=== PATIENT | male | born 1965 | race Caucasian/White ===

== ENCOUNTER 2021-12-16 14:40 | Day surgery (SDC) | payer OTHER, SELFPAY ==
[2021-12-12 10:37] LABS: BASOPHILS # (AUTO) 0.1 K/uL (0.0-0.2); BASOPHILS % (AUTO) 2.2 % (0.0-2.0); EOSINOPHILS # (AUTO) 0.3 K/uL (0.0-0.4); EOSINOPHILS % (AUTO) 4.9 % (0.0-4.0); HEMATOCRIT 46.4 % (36-54); HEMOGLOBIN 15.6 g/dL (14.0-18.0); LYMPHOCYTES % (AUTO) 32.5 % (20.5-51.5); MEAN CORPUSCULAR HEMOGLOBIN 31 pg (27-31); MEAN CORPUSCULAR HGB CONC 34 % (32-36); MEAN CORPUSCULAR VOLUME 92 fL (79.0-98.0); MONOCYTES # (AUTO) 0.6 K/uL (0.0-1.0); MONOCYTES % (AUTO) 9.4 % (1.7-9.3); NEUTROPHILS # (AUTO) 3.1 K/uL (1.8-7.7); PLATELET COUNT (AUTO) 165 K/uL (130-430); RED BLOOD CELL COUNT(AUTO) 5.04 MIL/uL (4.2-6.2); RED CELL DISTRIBUTION WIDTH 13.2 % (9.0-15.0); WHITE BLOOD COUNT (AUTO) 6.1 K/uL (4.8-10.8)
[2021-12-12 10:55] LABS: INR 0.9 (0.80-1.20)
[2021-12-12 11:00] LABS: BILIRUBIN,URINE NEGATIVE (NEGATIVE); BLOOD, URINE NEGATIVE (NEGATIVE); CLARITY/URINE CLEAR (CLEAR); COLOR,URINE YELLOW (YELLOW); GLUCOSE,URINE NEGATIVE (NEGATIVE); KETONES,URINE NEGATIVE (NEGATIVE); LEUKOCYTE ESTERASE ,URINE NEGATIVE (NEGATIVE); NITRITE, URINE NEGATIVE (NEGATIVE); PROTEIN URINE NEGATIVE (NEGATIVE); UROBILINOGEN,URINE 0.2 (0.2-1.0)
[2021-12-12 11:18] LABS: CALCIUM 9.3 mg/dL (8.4-11.0); CREATININE 1.03 mg/dL (0.55-1.30); POTASSIUM 5.1 mmol/L (3.5-5.1)
[~2021-12-16] VITALS: Ht 185.4 cm; Wt 97.5 kg
[~2021-12-16 14:40] MED LIST: BUPIVACAINE /PF 0.5% 30 ML VIAL INJ ONE; KETOROLAC TROMETHAMINE 30 MG VIAL IVP ONE; KETOROLAC TROMETHAMINE 30 MG VIAL IVP PRN; KETOROLAC TROMETHAMINE 30 MG VIAL ONE; LR 1,000 ML IV.SOLN IV ONE; METOCLOPRAMIDE HCL 10 MG/2 ML VIAL IVP PRN; MIDAZOLAM HCL 5 MG/5 ML VIAL IVP ONE; NS IRRIG SOLN 1000 ML IR ONE; ONDANSETRON HCL 4 MG/2 ML VIAL IVP ONE; PROPOFOL 200MG/ 20ML VIAL (DIPRIVAN) IV ONE; SEVOFLURANE 15 MIN GAS INH ONE; WATER FOR IRRIGATION,STERILE 1,000 ML IRRIG.SOLN IR ONE; fentaNYL CITRATE 250 MCG/5 ML AMP IV ONE
[2021-12-16] MEDS ORDERED: HYDROmorphone 1 MG/ML INJ. CARTRIDGE ONE (14:55)
[2021-12-16] MEDS: HYDROmorphone 1 MG/ML INJ. CARTRIDGE IVP PRN ×2 (14:58→16:07)
[2021-12-16 16:15] VITALS: BP_SYST 135
[2021-12-16 16:35] VITALS: BP_SYST 135
[2021-12-16] MEDS ORDERED: HYDROcodone/ACETAMIN 5-325 MG TAB (NORCO/ VICODIN) PO PRN ×2 (17:30)
[2021-12-16] MEDS ORDERED: ACETAMINOPHEN 325 MG TABLET PO PRN ×2 (17:30→17:45)
[2021-12-16] MEDS ORDERED: ONDANSETRON 4 MG ODT TAB PO PRN (17:30)
[2021-12-16] MEDS: HYDROmorphone 2 MG/ML VIAL IVP PRN (18:42)
[2021-12-16 20:00] VITALS: BP_SYST 133
[2021-12-17] VITALS: BP_SYST 132
[2021-12-17] MEDS: DOCUSATE SODIUM 100 MG CAPSULE PO SCH ×3 (00:34→21:00)
[2021-12-17] MEDS: CEFAZOLIN 1 GM IVPB PREMIX 50 ML IV SCH ×2 (00:35→05:30)
[2021-12-17] MEDS: HYDROmorphone 2 MG/ML VIAL IVP PRN ×5 (00:37→20:57)
[2021-12-17 09:00] VITALS: BP_SYST 139
[2021-12-17] MEDS: ENOXAPARIN SODIUM 40 MG/0.4 ML SYRINGE SUBCUT SCH (09:51)
[2021-12-17 12:00] VITALS: BP_SYST 149
[2021-12-17 17:31] VITALS: BP_SYST 136
[2021-12-17 23:30] VITALS: BP_SYST 127
[2021-12-18] MEDS: HYDROmorphone 2 MG/ML VIAL IVP PRN ×7 (01:26→20:43)
[2021-12-18 05:36] VITALS: BP_SYST 119
[2021-12-18 08:00] VITALS: BP_SYST 124
[2021-12-18] MEDS: DOCUSATE SODIUM 100 MG CAPSULE PO SCH ×2 (09:55→23:18)
[2021-12-18 12:00] VITALS: BP_SYST 126
[2021-12-18] MEDS: ENOXAPARIN SODIUM 40 MG/0.4 ML SYRINGE SUBCUT SCH (12:15)
[2021-12-18 14:30] VITALS: BP_SYST 137
[2021-12-18 17:40] VITALS: BP_SYST 17
[2021-12-19] MEDS: HYDROmorphone 2 MG/ML VIAL IVP PRN ×5 (03:20→19:39)
[2021-12-19 08:00] VITALS: BP_SYST 147
[2021-12-19] MEDS: ENOXAPARIN SODIUM 40 MG/0.4 ML SYRINGE SUBCUT SCH (09:33)
[2021-12-19 12:00] VITALS: BP_SYST 136
[2021-12-19] MEDS: DOCUSATE SODIUM 100 MG CAPSULE PO SCH ×2 (12:31→21:14)
[2021-12-19] MEDS ORDERED: OXYCODONE/ACETAMINOPHEN 5-325 TABLET PO PRN (14:15)
[2021-12-19] MEDS ORDERED: MAGNESIUM CITRATE 300 ML ORAL SOLUTION ONE (14:48)
[2021-12-19 18:34] VITALS: BP_SYST 134
== END 2021-12-19 21:43 | disposition home or self-care (01) ==
LOC: SDS 14:40 → SMU 14:43 → SDS 12-19 21:43
PROVIDERS: ATTEND Orthopaedic Surgery
DX: M19.072 Primary osteoarthritis, left ankle and foot (principal); M21.962 Unspecified acquired deformity of left lower leg; Z20.822 Contact with and (suspected) exposure to COVID-19; Z79.01 Long term (current) use of anticoagulants; Z79.899 Other long term (current) drug therapy
CPT/HCPCS: 27700; 36415 ×2; 71046; 76000; 80048; 81003; 85025; 85610; 85730; 87081; 87426; 88305; 88311; 97163; C1713; C1769; J0690; J1170 ×5; J1650 ×3; J1885; J2250; J2405; J2704; J3010; J3490; J7120; U0003